=== PATIENT | female | born 1970 | race Caucasian/White ===

== ENCOUNTER 2016-06-22 12:30 | Outpatient (RCR) | payer OTHER | END 2016-06-23 | disposition still patient (30) | LOC: WSPT | DX: M47.896 Other spondylosis, lumbar region (principal) | CPT/HCPCS: G0283-GP ==

== ENCOUNTER 2016-08-26 11:48 | Outpatient (RCR) | payer OTHER | END 2016-08-26 12:00 | LOC: WSPT 11:48 | DX: M46.92 Unspecified inflammatory spondylopathy, cervical region (principal); M51.36 Other intervertebral disc degeneration, lumbar region ==